=== PATIENT | female | born 1955 | race Caucasian/White ===

== ENCOUNTER → 2016-06-17 | Outpatient (CLI) | payer OTHER ==
--- NOTE | 2016-06-29 09:38 | CT ---
EXAMINATION TYPE: CT brain wo/w con DATE OF EXAM: 06/17/2016 4:44 PM COMPARISON: 04/24/2015 HISTORY: Dizziness and unsteady gait. History of cerebral aneurysm with repair. CT DLP: 3068 mGycm, Automated exposure control for dose reduction was used. CONTRAST: Patient injected with 100 mL of Omnipaque 300. CT of the brain is performed utilizing 3 mm thick sections through the posterior fossa and 3 mm thick sections through the remaining calvarium. Study is performed within 24 hours of arrival to the hospital. No abnormal hyperdensity is present to suggest an acute intracranial hemorrhage. No mass lesion is evident. No acute infarcts are evident. There is beam hardening artifact from aneurysm repair along the front al region. Following contrast administration no suspicious enhancement is evident. There may be prior infarct along the right frontal region. This is an interval change from the surgery. Postsurgical ch anges are within the frontal region. Previous pneumocephalus has resolved. Ventricles and sulci are appropriate for the patient age. No abnormal enhancement is evident. Paranasal sinuses and mastoid air cells within the [id number] are clear. IMPRESSIONS: 1. Postsurgical changes. 2. 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 An acute intracranial process is not ident ified.
--- NOTE | 2016-06-29 11:06 | CT ---
EXAMINATION TYPE: CT cervical spine wo con DATE OF EXAM: 06/17/2016 4:44 PM COMPARISON: CTA neck 04/20/2016 HISTORY: Dizziness and unsteady gait. History of cerebral aneurysm with repair. CT DLP: 3068 mGycm Automated exposure control for dose reduction was used. TECHNIQUE: CT scan of the cervical spine is obtained without contrast, axial images are obtained, sa gittal and coronal reformatted images are also reviewed. FINDINGS: Minimal disc space narrowing may be present. Disc alignment appears normal. Vertebral body heights are preserved. No spinal canal stenosis is evident. Neural foramen appear patent. Mild anteri or inferior vertebral body spurring is present. IMPRESSION: 1. No acute osseous abnormality. 2. Degenerative changes cervical spine.
== END | disposition home or self-care (01) ==
LOC: RADCTMAIN 15:45
PROVIDERS: ATTEND Psychiatry & Neurology Pain Medicine
DX: M47.812 Spondylosis without myelopathy or radiculopathy, cervical region (principal); R42 Dizziness and giddiness; Z98.890 Other specified postprocedural states
CPT/HCPCS: 72125; 70470; Q9967; 96365

== ENCOUNTER → 2016-07-27 | Outpatient (CLI) | payer OTHER ==
[2016-07-27 16:20] LABS: Appearance,CSF Clear
[2016-07-28 14:23] LABS: IgG Synthesis Rate 0.29 mg/day (0.00 - 3.00); Immunoglobulin G 806 mg/dL (700 - 1600)
[2016-07-30 15:32] LABS: Lyme Specimen Source Not Provided
== END ==
LOC: LABWHC1 08:22
PROVIDERS: ATTEND Psychiatry & Neurology Pain Medicine
DX: H53.9 Unspecified visual disturbance (principal); R53.83 Other fatigue
CPT/HCPCS: 36415; 82040; 82042; 82784; 83873; 83916; 84157; 87476; 88108; 89050

== ENCOUNTER → 2016-11-08 | Outpatient (CLI) | payer OTHER ==
--- NOTE | 2016-11-08 11:38 | MR ---
EXAMINATION TYPE: MR brain wo/w con DATE OF EXAM: 11/08/2016 COMPARISON: NONE HISTORY: MS TECHNIQUE: Multiplanar, multisequence images of the brain and brainstem is performed without and with IV contras t, utilizing 18 mL intravenous MultiHance . FINDINGS: There is extensive postsurgical change involving the frontal bone suggestive of previous cr aniotomy and artifacts suggestive of possible aneurysm clipping. There is no midline shift or mass effect. No enhancing mass. Dural-based enhancement along the fronta l lobe likely is postsurgical. Extensive artifact seen in the right frontal lobe corresponds to an ar ea of encephalomalacia by CT scan probable adjacent artifact. WHITE MATTER: There are approximately 70 focal areas of abnormal signal in the white matter the large st measuring 9 mm in the left temporal lobe. No lesions perpendicular to the ventricular system. No e nhancing lesions. No callosal lesions. IMPRESSION: 1. Extensive postsurgical change with suspected artifact involving the right frontal lobe. Enhancemen t along the dural surface of the right frontal lobe is felt most likely postsurgical. No prior exams available for comparison. Correlate clinically. 2. Diffuse white matter changes with at least 70 focal lesions identified. Pattern is nonspecific wit h no enhancing or callosal lesions. Differential diagnosis includes remote microvascular ischemia and demyelinating processes. Correlate clinically.
== END | disposition home or self-care (01) ==
LOC: RADMRIMAIN 08:12
PROVIDERS: ATTEND Psychiatry & Neurology Pain Medicine
DX: R90.82 White matter disease, unspecified (principal); Z98.890 Other specified postprocedural states
CPT/HCPCS: 70553; A9577

== ENCOUNTER → 2016-11-08 | Outpatient (CLI) | payer OTHER | END | disposition home or self-care (01) | LOC: LABWHC1 09:37 | PROVIDERS: ATTEND Psychiatry & Neurology Pain Medicine | DX: Z51.81 Encounter for therapeutic drug level monitoring (principal); Z79.891 Long term (current) use of opiate analgesic | CPT/HCPCS: 36415; 82306 ==

== ENCOUNTER → 2017-02-03 | Outpatient (CLI) | payer OTHER | END | disposition home or self-care (01) | LOC: LABWHC1 15:44 | PROVIDERS: ATTEND Psychiatry & Neurology Pain Medicine | DX: Z01.818 Encounter for other preprocedural examination (principal); G35 Multiple sclerosis | CPT/HCPCS: 36415; 93005 ==

== ENCOUNTER → 2017-08-19 | Outpatient (CLI) | payer OTHER ==
[2017-08-19 13:35] LABS: Blood Urea Nitrogen 20 mg/dL (7-17)
--- NOTE | 2017-08-19 14:42 | MR ---
EXAMINATION TYPE: MR brain wo/w con DATE OF EXAM: 08/19/2017 COMPARISON: Prior MRI brain November 08, 2016 HISTORY: dizziness, MS TECHNIQUE: Multiplanar, multisequence images of the brain and brainstem is performed without and with IV contras t, utilizing 7.5 mL intravenous Gadavist gadolinium contrast is administered intravenously. Demyelin ating disease protocol with additional Sagittal Flair sequence performed. FINDINGS: T2 Lesions Present : Yes Approximate Number of Lesions: Numerous approximately 70-100 Locations Identified : Scattered diffuse involvement Size of Reference Lesion(s): 1. 0.8 cm x 0.4 cm x 0.7 cm on axial image 21 and sagittal image 8 posterior left frontal lesion sta ble. Enhancing Lesion(s) Present: No Change from Prior: Stable Diffusion weighted images demonstrate no evidence of a recent infarct or other diffusion abnormality. There is no worrisome extra-axial fluid collection. The ventricular system and cisternal spaces ar e normal in size and appearance. The brain volume is age appropriate. There is artifact from frontal craniotomy and aneurysm clip along the anterior interhemispheric fissure redemonstrated. Eccentric c urvilinear dural enhancement is redemonstrated presumed postsurgical. Midline structures demonstrate normal morphology. The craniocervical junction appears within normal limits. Post contrast images demonstrate no abnormal enhancement. The dural venous sinuses appear pa tent. The globes are distorted by artifact. Visualized paranasal sinuses are grossly clear. IMPRESSION: Moderate to severe nonspecific white matter changes redemonstrated without significant in terval change. No new or enhancing lesions are seen. Postsurgical changes related to aneurysm clippin g redemonstrated.
== END | disposition home or self-care (01) ==
LOC: RADMRIMAIN 13:01
PROVIDERS: ATTEND Psychiatry & Neurology Pain Medicine
DX: G35 Multiple sclerosis (principal); Z98.890 Other specified postprocedural states
CPT/HCPCS: 82565; 84520; 70553; A9581

== ENCOUNTER → 2017-10-10 | Outpatient (CLI) | payer OTHER ==
[2017-10-10 07:16] LABS: Blood Urea Nitrogen 13 mg/dL (7-17)
--- NOTE | 2017-10-10 17:36 | MR ---
EXAMINATION TYPE: MR cervical spine wo/w con DATE OF EXAM: 10/10/2017 COMPARISON: NONE Contrast: 7.5 mL Gadavist. HISTORY: Multiple sclerosis / Cervicalgia TECHNIQUE: Multiplanar, multisequence images of the cervical spine were acquired utilizing 7.5 mL intravenous Ga davist gadolinium contrast. Diffusion weighted imaging was performed. C2-C3: No evidence for degenerative disc disease. No disc bulge/herniation or protrusion. No Canal stenosis. Foramina are patent bilaterally. C3-C4: No evidence for degenerative disc disease. No disc bulge/herniation or protrusion. No Canal stenosis. Foramina are patent bilaterally. C4-C5: There is a tiny central protrusion at C4-C5 with mild anterior thecal sac compression. This is close approximation with spinal cord. No cord deformity is evident. No spinal canal stenosis or neur al foraminal stenosis is present C5-C6: No evidence for degenerative disc disease. No disc bulge/herniation or protrusion. No Canal stenosis. Foramina are patent bilaterally. C6-C7: No focal disc herniation or significant disc bulge is evident. Uncovertebral joint hypertrophy is present with minimal right and moderate left foraminal stenosis. C7-T1: No evidence for degenerative disc disease. No disc bulge/herniation or protrusion. No Canal stenosis. Foramina are patent bilaterally. Vertebral body alignment is normal. Disc desiccation is present. Spinal cord maintains normal signal throughout its visualized course. No suspicious hyperintensity to suggest multiple sclerosis is ident ified. Following contrast administration no suspicious enhancement is evident. IMPRESSION: 1. No suspicious changes to suggest multiple sclerosis. 2. Moderate left foraminal narrowing due to uncovertebral joint hypertrophy C6-7. 3. Tiny central protrusion C4-C5
== END | disposition home or self-care (01) ==
LOC: RADMRIMAIN 06:39
PROVIDERS: ATTEND Psychiatry & Neurology Neurology
DX: M99.71 Connective tissue and disc stenosis of intervertebral foramina of cervical region (principal); G35 Multiple sclerosis
CPT/HCPCS: 82565; 84520; 72156; A9581

== ENCOUNTER → 2017-11-24 | Outpatient (CLI) | payer OTHER ==
--- NOTE | 2017-11-24 18:22 | FL ---
MODIFIED SWALLOW / DEGLUTITION STUDY DATE OF EXAM: 11/24/2017 CLINICAL HISTORY: 62-year-old female dysphagia, oropharyngeal phase, mostly with solids, history of M S. TECHNIQUE: Deglutition study is performed utilizing thin liquid barium, honey and nectar thick liqui d barium, barium thick applesauce, and barium coated cracker. COMPARISON: None. FINDINGS: A tiny C5-C6 Zenker's diverticulum is noted and spontaneously clears. Intraesophageal reflux is noted up to the cervical esophagus. The oral and pharyngeal phases show satisfactory initiation and propagation with all modalities teste d. Normal mastication is seen with solid modalities tested. There is no evidence of penetration or aspiration with any modality tested. IMPRESSION: 1. No evidence for penetration or aspiration. 2. A tiny Zenker's diverticulum incidentally noted that clears spontaneously. 3. Intraesophageal reflux. Consider esophagram to assess esophageal motility and for any potential ga stroesophageal reflux. Please refer to speech therapist notes for further details if necessary.
== END ==
LOC: RADFLMAIN 10:52
PROVIDERS: ATTEND Psychiatry & Neurology Neurology
DX: K21.9 Gastro-esophageal reflux disease without esophagitis (principal)
CPT/HCPCS: 74230

== ENCOUNTER → 2018-02-24 | Outpatient (CLI) | payer OTHER ==
[2018-02-24 11:12] LABS: Basophils % (A) 1 %; Eosinophils # (A) 0.3 k/uL (0-0.7); Eosinophils % (A) 4 %; HGB 14.5 gm/dL (11.4-16.0); Lymphocytes # (A) 1.4 k/uL (1.0-4.8); Lymphocytes % (A) 23 %; MCH 27.8 pg (25.0-35.0); MCHC 34.5 g/dL (31.0-37.0); MCV 80.6 fL (80.0-100.0); Mean Platelet Volume 7.6; Monocytes # (A) 0.3 k/uL (0-1.0); Monocytes % (A) 5 %; Neutrophils % (A) 66 %; Platelet Count 179 k/uL (150-450); RBC 5.21 m/uL (3.80-5.40)
[2018-02-24 15:32] LABS: Albumin 4.4 g/dL (3.80-4.90); Albumin/Globulin Ratio 2.2 (1.20-2.10); Anion Gap 6.1 mmol/L (4.00-12.00); Calcium 9.5 mg/dL (8.7-10.3); Carbon Dioxide 29.9 mmol/L (21.6-31.8); Potassium 4.4 mmol/L (3.5-5.5); Total Bilirubin 0.6 mg/dL (0.3-1.2); Total Protein 6.4 g/dL (6.2-8.2)
[2018-02-24 15:35] LABS: Vitamin D 25 Hydroxy 24.4 ng/mL (30.0-100.0)
[2018-02-24 15:39] LABS: T4, Free (Free Thyroxine) 1.2 ng/dL (0.80-1.80)
[2018-02-24 15:40] LABS: Folate, Serum 22.3 ng/mL
[2018-02-24 16:13] LABS: Hepatitis A Antibody IgM Non-Reactive (Non-Reactive); Hepatitis B Core IgM Non-Reactive (Non-Reactive)
[2018-02-24 18:05] LABS: HIV 1 AB Non-Reactive (Non-Reactive); HIV AB P24 Non-Reactive (Non-Reactive); HIV P24 AG Non-Reactive (Non-Reactive)
[2018-02-24 18:27] LABS: Hemoglobin A1C 4.8 % (4.0-6.0)
[2018-02-25 03:21] LABS: Hepatitis B Core IgM Non-Reactive (Non-Reactive)
[2018-02-25 18:03] LABS: Hepatitis B Surface AB- Quant 3.5 mIU/mL
[2018-02-27 05:01] LABS: Varicella IgM Antibody 0.38 INDEX (<=0.90)
== END | disposition home or self-care (01) ==
LOC: LABWHC1 09:23
PROVIDERS: ATTEND Psychiatry & Neurology Pain Medicine
DX: G35 Multiple sclerosis (principal)
CPT/HCPCS: 36415; 80053; 80074; 82306; 82607; 82746; 83036; 84207; 84425; 84439; 84443; 84481; 84591; 85025; 86704; 86705; 86706; 86707; 86787; 87340; 87390

== ENCOUNTER → 2018-03-21 | Outpatient (CLI) | payer OTHER ==
[2018-03-21 17:11] LABS: LDL Cholesterol,Calculated 178.8 mg/dL (0.0-131.0); VLDL Calculation 46.2 mg/dL (5.00-40.00)
== END | disposition home or self-care (01) ==
LOC: LABWHC1 09:00
PROVIDERS: ATTEND Nurse Practitioner Family
DX: E78.2 Mixed hyperlipidemia (principal); Z12.9 Encounter for screening for malignant neoplasm, site unspecified
CPT/HCPCS: 36415; 80061; 86304

== ENCOUNTER → 2021-02-03 | Outpatient (CLI) | payer MEDICARE ==
[2021-02-03 23:06] LABS: HCT 39.3 % (37.2-46.3); HGB 12.9 g/dL (12.0-15.0); MCHC 32.8 g/dL (32.0-37.0); MCV 82.4 fL (80.0-97.0); Mean Platelet Volume 11.3 fL (9.5-12.2); Platelet Count 192 X 10*3/uL (140-440); RBC 4.77 X 10*6/uL (4.10-5.20); RDW 13.6 % (11.5-14.5); WBC 6.18 X 10*3/uL (4.50-10.00)
[2021-02-04 05:52] LABS: Varicella IgM Antibody 0.33 INDEX (<=0.90)
[2021-02-04 07:50] LABS: Calcium 9.7 mg/dL (8.7-10.3)
[2021-02-04 10:38] LABS: Folate, Serum >20.00 ng/mL (4.40-31.00)
[2021-02-04 14:43] LABS: Hepatitis B Core IgM Nonreactive (Nonreactive); Hepatitis B Surface Antibody NonReactive (Nonreactive); Hepatitis B Surface Antigen Nonreactive (Nonreactive)
== END | disposition home or self-care (01) ==
LOC: LABWHC1 15:29
PROVIDERS: ATTEND Psychiatry & Neurology Neurology
DX: G35 Multiple sclerosis (principal)
CPT/HCPCS: 36415; 82306; 82310; 82607; 82746; 83036; 84207; 84425; 84439; 84443; 84481; 84591; 85027; 86705; 86706; 86787; 87340

== ENCOUNTER → 2022-09-21 | Outpatient (CLI) | payer MEDICARE, OTHER ==
[2022-09-22 03:03] LABS: Basophils # (A) 0.04 X 10*3/uL (0.00-0.10); Basophils % (A) 0.3 %; Eosinophils # (A) 0.32 X 10*3/uL (0.04-0.35); Eosinophils % (A) 2.8 %; HCT 45.2 % (37.2-46.3); HGB 14.7 g/dL (12.0-15.0); Immature Grans, Automated 0.3 %; Lymphocytes # (A) 1.75 X 10*3/uL (0.90-5.00); Lymphocytes % (A) 15.1 %; MCH 27.7 pg (27.0-32.0); MCHC 32.5 g/dL (32.0-37.0); MCV 85.1 fL (80.0-97.0); Mean Platelet Volume 11.2 fL (9.5-12.2); Monocytes # (A) 0.75 X 10*3/uL (0.20-1.00); Monocytes % (A) 6.5 %; NRBC Per 100 WBC 0 /100 WBCS (0.0-0.0); Neutrophils # (A) 8.72 X 10*3/uL (1.80-7.70); Platelet Count 233 X 10*3/uL (140-440); RBC 5.31 X 10*6/uL (4.10-5.20); RDW 13.9 % (11.5-14.5); WBC 11.62 X 10*3/uL (4.50-10.00)
[2022-09-22 04:48] LABS: ALT 23 U/L (8-44); AST 21 U/L (13-35); African American GFR (CKD) 77.8 (60.0-200.0); Albumin 4.7 g/dL (3.8-4.9); Albumin/Globulin Ratio 1.81 (1.60-3.17); Alkaline Phosphatase 103 U/L (41-126); BUN/Creat Ratio 16.22 Ratio (12.00-20.00); Blood Urea Nitrogen 14.6 mg/dL (9.0-27.0); Calcium 9.8 mg/dL (8.7-10.3); Carbon Dioxide 22.8 mmol/L (20.0-27.5); Chloride 97 mmol/L (96-109); Chol/HDL Ratio 7.24 Ratio; Globulin 2.6 g/dL (1.6-3.3); Glucose 81 mg/dL (70-110); LDL Cholesterol,Calculated 215.3 mg/dL (0.0-131.0); Non-African American GFR(CKD) 67.1 (60.0-200.0); Potassium 4.7 mmol/L (3.5-5.5); Sodium 139 mmol/L (135-145); Total Protein 7.3 g/dL (6.2-8.2)
== END | disposition home or self-care (01) ==
LOC: LABWHC1 13:49
PROVIDERS: ATTEND Family Medicine
DX: Z00.01 Encounter for general adult medical examination with abnormal findings (principal); Z13.6 Encounter for screening for cardiovascular disorders
CPT/HCPCS: 36415; 80053; 80061; 85025